=== PATIENT | male | born 1965 | race Caucasian/White ===

== ENCOUNTER 2021-12-23 04:06 | Inpatient (IN) | payer OTHER ==
[2021-12-19 11:09] VITALS: BMI 30.9
[~2021-12-23 04:06] MED LIST: BUPIVACAINE HCL/PF 0.5% (5 MG/ML) 30 ML VIAL IJ ONE; BUPIVACAINE LIPOSOME/PF (EXPAREL) 266 MG/20 ML VIAL NR ONE; GENTAMICIN SO4 80 MG/2 ML VIAL IVPB ONE; HYDROGEN PEROXIDE 473 ML PO ONE; THROMBIN (BOVINE) 20,000 UNIT VIAL TP ONE; VANCOMYCIN 1 GM in NS (PRE-DOCKED) 1,000 MG/250 ML IVPB ONE
[2021-12-23] MEDS ORDERED: GENTAMICIN SO4 80 MG/2 ML VIAL ONE ×2 (09:58→10:28)
[2021-12-23] MEDS ORDERED: LIDOCAINE HCL 1% EPINEPHRINE 1:200,000 30 ML VIAL (PF) ONE ×2 (09:58→10:28)
[2021-12-23] MEDS ORDERED: VANCOMYCIN 1,000 MG VIAL (RESTRICTED TO ID ONLY) ONE ×2 (09:58→12:29)
[2021-12-23] MEDS ORDERED: BUPIVACAINE LIPOSOME/PF (EXPAREL) 266 MG/20 ML VIAL ONE (09:59)
[2021-12-23] MEDS ORDERED: BACITRACIN 15 GM TUBE TOPICAL OINTMENT ONE (10:28)
[2021-12-23] MEDS ORDERED: MIDAZOLAM HCL 2 MG/2 ML SINGLE DOSE VIAL ONE (11:10)
[2021-12-23] MEDS ORDERED: PROPOFOL 20 ML ONE (11:10)
[2021-12-23] MEDS ORDERED: LIDOCAINE HCL/PF 2% SDV 5ML VIAL ONE (11:27)
[2021-12-23] MEDS ORDERED: ROCURONIUM BROMIDE 50 MG/5 ML SYRINGE ONE ×2 (11:28→13:20)
[2021-12-23] MEDS ORDERED: ONDANSETRON 4 MG/2 ML VIAL ONE (12:17)
[2021-12-23] MEDS ORDERED: DEXAMETHASONE SOD PHOSPHATE 4 MG/1 ML VIAL ONE (12:17)
[2021-12-23] MEDS ORDERED: TRANEXAMIC ACID 1000 MG/10 ML VIAL ONE (12:29)
[2021-12-23] MEDS ORDERED: ceFAZolin SODIUM 1 GM VIAL ONE (12:29)
[2021-12-23] MEDS ORDERED: ceFAZolin SODIUM 1 GM VIAL IVPB ONE (12:30)
[2021-12-23] MEDS ORDERED: ACETAMINOPHEN INJECTION 100 ML IVPB ONE (12:34)
[2021-12-23] MEDS ORDERED: VANCOMYCIN 1 GM in NS (PRE-DOCKED) 1,000 MG/250 ML IVPB ONE (12:40)
[2021-12-23] MEDS ORDERED: ESMOLOL HCL 100,000 MCG/10 ML VIAL ONE (12:46)
[2021-12-23] MEDS ORDERED: THROMBIN (BOVINE) 20,000 UNIT VIAL TP ONE (13:00)
[2021-12-23] MEDS ORDERED: GENTAMICIN SO4 80 MG/2 ML VIAL IVPB ONE (13:07)
[2021-12-23] MEDS ORDERED: HYDROmorphone HCl 2 MG/ML VIAL ONE (14:04)
[2021-12-23] MEDS ORDERED: HYDROGEN PEROXIDE 473 ML PO ONE (14:05)
[2021-12-23] MEDS ORDERED: BUPIVACAINE LIPOSOME/PF (EXPAREL) 266 MG/20 ML VIAL NR ONE (14:20)
[2021-12-23] MEDS ORDERED: BUPIVACAINE HCL/PF 0.5% (5 MG/ML) 30 ML VIAL IJ ONE (14:20)
[2021-12-23] MEDS ORDERED: NEOSTIGMINE METHYLSULFATE 0.5 MG/1 ML - 10 ML MDV ONE (14:55)
[2021-12-23] MEDS ORDERED: GLYCOPYRROLATE 0.2 MG/1 ML VIAL ONE (14:55)
[2021-12-23] MEDS ORDERED: diphenhydrAMINE HCL 25 MG CAPSULE (FP) PO PRN (15:18)
[2021-12-23] MEDS ORDERED: ONDANSETRON 4 MG/2 ML VIAL IVPUSH PRN (15:18)
[2021-12-23] MEDS ORDERED: LACTATED RINGERS SOLUTION 1,000 ML/1,000 ML INFUS.BAG IV SCH (15:30)
[2021-12-23] MEDS ORDERED: BENZOCAINE/MENTH/CETYLPYRD CL 1 EACH LOZENGE MM PRN (17:00)
[2021-12-23] MEDS: CEFAZOLIN 1 GM in DEXTROSE 5%-WATER - 50 ML IVPB SCH (19:50)
[2021-12-23] MEDS: DOCUSATE SODIUM 100 MG CAPSULE (FP) PO SCH (22:01)
[2021-12-23] MEDS: oxyCODONE HCL 5 MG TABLET PO PRN ×2 (22:10)
[2021-12-23] MEDS: INSULIN SLIDING SCALE (NOVOLOG) 1 VIAL SQ SCH (22:12)
[2021-12-24] MEDS: CEFAZOLIN 1 GM in DEXTROSE 5%-WATER - 50 ML IVPB SCH ×3 (02:16→19:00)
[2021-12-24] MEDS: INSULIN SLIDING SCALE (NOVOLOG) 1 VIAL SQ SCH ×4 (06:34→22:05)
[2021-12-24] MEDS: DOCUSATE SODIUM 100 MG CAPSULE (FP) PO SCH ×3 (06:34→21:35)
[2021-12-24] MEDS: oxyCODONE HCL 5 MG TABLET PO PRN ×3 (06:38→17:35)
[2021-12-24] MEDS ORDERED: INSULIN (NOVOLOG) ASPART 100 UNITS/ML 10ML VIAL ONE (06:55)
[2021-12-24] MEDS: HEPARIN NA (PORCINE) 5,000 UNITS/ML 1ML VIAL SQ SCH ×2 (09:47→19:00)
[2021-12-24] MEDS: FOLIC ACID 1 MG TABLET (FP) PO SCH (09:50)
[2021-12-24] MEDS: FERROUS SO4 325 MG TABLET (FP) PO SCH (09:50)
[2021-12-24 10:13] LABS: HEMATOCRIT 39.4 % (35.4-49); HEMOGLOBIN 12.8 GM/dL (11.7-16.9); MCH 20.2 pg (25.7-33.7); MCHC 32.4 g/dl (32.0-35.9); MEAN CELL VOLUME 62.5 fl (80-96); MEAN PLT VOLUME 8.3 fl (7.5-11.1); PLATELET COUNT 283 10^3/uL (134-434); RBC 6.31 M/mm3 (4.00-5.60); RDW 16.1 % (11.9-15.9); WHITE BLOOD COUNT 11.3 K/mm3 (4.0-10.0)
[2021-12-24 10:26] LABS: CALCIUM 9.2 mg/dL (8.5-10.1)
[2021-12-24 10:27] LABS: BLOOD UREA NITROGEN 11.5 mg/dL (7-18)
[2021-12-24 10:30] LABS: CREATININE 0.9 mg/dL (0.55-1.3)
[2021-12-24] MEDS: ACETAMINOPHEN 500 MG TABLET (FP) PO SCH ×3 (11:42→21:45)
[2021-12-25] MEDS: CEFAZOLIN 1 GM in DEXTROSE 5%-WATER - 50 ML IVPB SCH ×2 (01:48→09:58)
[2021-12-25] MEDS: HEPARIN NA (PORCINE) 5,000 UNITS/ML 1ML VIAL SQ SCH ×2 (01:49→09:59)
[2021-12-25] MEDS: ACETAMINOPHEN 500 MG TABLET (FP) PO SCH ×2 (04:49→10:50)
[2021-12-25] MEDS: DOCUSATE SODIUM 100 MG CAPSULE (FP) PO SCH ×2 (05:39→15:19)
[2021-12-25] MEDS: INSULIN SLIDING SCALE (NOVOLOG) 1 VIAL SQ SCH ×2 (06:03→12:00)
[2021-12-25 09:26] VITALS: RESP 18; TEMP 97.8
[2021-12-25] MEDS: oxyCODONE HCL 5 MG TABLET PO PRN (09:39)
[2021-12-25 09:45] LABS: HEMOGLOBIN 13.1 GM/dL (11.7-16.9); MCHC 31.9 g/dl (32.0-35.9); MEAN CELL VOLUME 62.2 fl (80-96); MEAN PLT VOLUME 8.5 fl (7.5-11.1); PLATELET COUNT 273 10^3/uL (134-434); RBC 6.59 M/mm3 (4.00-5.60); RDW 16.2 % (11.9-15.9); WHITE BLOOD COUNT 8.4 K/mm3 (4.0-10.0)
[2021-12-25 09:47] LABS: MCH 19.8 pg (25.7-33.7)
[2021-12-25] MEDS: FOLIC ACID 1 MG TABLET (FP) PO SCH (09:59)
[2021-12-25] MEDS: FERROUS SO4 325 MG TABLET (FP) PO SCH (10:00)
[2021-12-25 10:10] LABS: BLOOD UREA NITROGEN 11.8 mg/dL (7-18)
[2021-12-25 10:13] LABS: CREATININE 0.9 mg/dL (0.55-1.3)
[2021-12-25 15:23] VITALS: BP 128/72; PULSE 84
== END 2021-12-25 18:00 | disposition home or self-care (01) | DRG 321 ==
LOC: J2C 04:06 → J8W 17:58
PROVIDERS: ADMIT Internal Medicine; ATTEND Internal Medicine
PROC: 00NW0ZZ Release Cervical Spinal Cord, Open Approach (ICD-10-PCS; 2021-12-23)
PROC: 0RB30ZZ Excision of Cervical Vertebral Disc, Open Approach (ICD-10-PCS; 2021-12-23)
PROC: 4A11X4G Monitoring of Peripheral Nervous Electrical Activity, Intraoperative, External Approach (ICD-10-PCS; 2021-12-23)
PROC: 0RG20A0 Fusion of 2 or more Cervical Vertebral Joints with Interbody Fusion Device, Anterior Approach, Anterior Column, Open Approach (ICD-10-PCS; principal; 2021-12-23 11:00)
DX: M47.12 Other spondylosis with myelopathy, cervical region (principal); M40.202 Unspecified kyphosis, cervical region; E11.9 Type 2 diabetes mellitus without complications; F32.A Depression, unspecified
CPT/HCPCS: 36415; 72125-TC; 76000-TC-FY; 80048; 82962; 85027; 94760; 97116-GP; 97161-GP; C1713; C1889; J1644